=== PATIENT | male | born 1975 | race Caucasian/White ===

== ENCOUNTER 2017-10-02 15:51 | Emergency (ER) | payer MEDICAID, OTHER ==
[2017-10-02 15:59] VITALS: BP 142/89
[2017-10-02] MEDS ORDERED: CHLORDIAZEPOXIDE 25MG PREPK#6 BTL TAKEHOME ONE (16:20)
--- NOTE | 2017-10-02 16:20 | EDPHY ---
H & P Time Seen by Provider: 10/02/17 16:02 HPI/ROS: CHIEF COMPLAINT: Alcohol intoxication HISTORY OF PRESENT ILLNESS: 42-year-old male presents to the emergency department by private vehicle with acute alcohol intoxication. The patient is requesting detox. He apparently has already talked with his sponsor who has contacted the addiction recovery Center and they recommended that he come to the emergency department for evaluation and go to the addiction recovery Center with prepack of Librium. The patient has had previous DTs. Denies chest pain or difficulty breathing. No vomiting. No neck pain. No headache. He denies suicidal homicidal ideation. Denies any other substance abuse. He does not believe he has ever had an alcohol withdrawal seizure. REVIEW OF SYSTEMS: Constitutional: No fever, no chills. Eyes: No double or blurry vision. ENT: No sore throat. Respiratory: No cough, no shortness of breath. Cardiac: No chest pain. Gastrointestinal: No abdominal pain, vomiting or diarrhea. Genitourinary: No dysuria. Musculoskeletal: No neck or back pain. Skin: No rashes. Neurological: No headache. Past Medical/Surgical History: Alcoholism, DTs Social History: Smoking Status: Never smoked Physical Exam: General Appearance: Alert, no distress. Mentating normally and answering questions appropriately. Smells strongly of alcohol. Eyes: Pupils equal and round. Extraocular motions are all intact. Horizontal nystagmus. ENT: Mouth: Mucous membranes moist. Respiratory: No wheezing, rhonchi, or rales, lungs are clear to auscultation. Cardiovascular: Regular rate and rhythm. Gastrointestinal: Abdomen is soft and nontender, no masses, no rebound or guarding, bowel sounds normal. Neurological: Alert and oriented x 3, cranial nerves II through XII grossly intact Skin: Warm and dry, no rashes. Musculoskeletal: Nontender to palpate along the cervical, thoracic or lumbar spine. Neck is supple. Extremities: Full range of motion and no peripheral edema. Psychiatric: Patient is oriented X 3, there is no agitation. Constitutional: Initial Vital Signs Temperature (C) 36.8 C 10/02/17 15:57 Heart Rate 99 10/02/17 15:57 Respiratory Rate 18 10/02/17 15:57 Blood Pressure 142/89 H 10/02/17 15:57 O2 Sat (%) 96 10/02/17 15:57 O2 Delivery Mode Room Air Allergies/Adverse Reactions: No Known Allergies Allergy (Verified 10/02/17 15:57) Home Medications: Medication Instructions Recorded NK [No Known Home Meds] 10/02/17 Medical Decision Making ED Course/Re-evaluation: The patient will be discharged to the Addiction recovery [facility]. He was given prepack of Librium. He last drank just prior to arrival. Differential Diagnosis: Including but not limited to alcohol intoxication, alcohol withdrawal, seizure, delirium tremors, electrolyte abnormality - Data Points Medications Given: Discontinued Medications Chlordiazepoxide (Librium 25 Mg Prepack#6) 1 btl TAKEHOME EDNOW ONE Stop: 10/02/17 16:21 Last Admin: 10/02/17 16:30 Dose: 1 btl Departure - Departure Disposition: Home, Routine, Self-Care Clinical Impression: Alcohol intoxication Qualifiers: Complication of substance-induced condition: uncomplicated Qualified Code(s): F10.920 - Alcohol use, unspecified with intoxication, uncomplicated Condition: Good Instructions: Alcohol Intoxication (ED) Additional Instructions: You are going to the Addiction recovery Center to help with withdrawal symptoms. You have been given a prepack of Librium to take with you. Referrals: [facility] [Outside] - As per Instructions
== END 2017-10-02 16:45 | disposition home or self-care (01) ==
DX: F10.920 Alcohol use, unspecified with intoxication, uncomplicated (principal)